=== PATIENT | female | born 2000 | race Caucasian/White ===

== ENCOUNTER 2022-04-26 09:45 | Emergency (ER) | payer MEDICAID, SELFPAY ==
[2022-04-26 09:53] VITALS: BP 130/79; PULSE 116; RESP 18; TEMP 36.6; O2SAT 100
--- NOTE | 2022-04-26 10:06 | ED.GENADULT ---
HPI - General Adult General Chief complaint: Dental/Oral Stated complaint: Toothache Time Seen by Provider: 04/26/22 09:49 Source: patient Mode of arrival: ambulatory Limitations: no limitations History of Present Illness HPI narrative: Patient presents for evaluation of bilateral upper and lower dental pain for the past 3-4 days. She states pain is throbbing, 10/10 in severity. No fever, chills, nausea, vomiting, trismus, problems handling secretions. She tried taking ibuprofen for her symptoms with mild improvement in her pain thereafter. She does not smoke. LMP now. Related Data Allergies Allergy/AdvReac Type Severity Reaction Status Date / Time Penicillins Allergy Unknown Unknown Verified 04/26/22 09:57 Review of Systems Review of Systems: CONSTITUTIONAL: Denies fever, chills, or sweats. EYES: Denies visual changes, redness, or discharge. ENT: Reports bilateral upper and lower dental pain. Denies rhinorrhea, congestion, sore throat, or otalgia. CARDIOVASCULAR: Denies chest pain, palpitations, or edema. RESPIRATORY: Denies cough or dyspnea. GASTROINTESTINAL: Denies abdominal pain, nausea, vomiting, or diarrhea. GENITOURINARY: Denies dysuria or hematuria. SKIN: Denies rash or itching. MUSCULOSKELETAL: Denies back pain, joint pain, or myalgia. NEUROLOGIC: Denies headache, numbness, dizziness, or weakness. PSYCHIATRIC: Denies anxiety or depression. PMFSH Past Medical History Medical History No pertinent past medical history Surgical History Surgical History No pertinent past surgical history Family History Family History Mother Family history non-contributory Social History Social History (Updated 04/26/22 @ 10:10 by Nicolás Grove, SENIOR ENGINEERING TEAM LEADER, ) Smoking status: Never smoker Substance use: never Gender identity (if verbalized by the patient): Female Sexual Orientation (if Verbalized by the Patient): Straight or Heterosexual Spiritual care concerns: No Exam Narrative: GENERAL: Well-appearing, well-nourished, and in no acute distress. HEAD: Normocephalic, atraumatic. EYES: PERRLA and EOMI. ENT: Nares clear, no rhinorrhea or epistaxis. Mucous membranes moist. Yoder teeth are partially impacted. There is a fracture to posterior aspect of tooth #1. There is swelling in gumline surrounding all wisdom teeth. There is no visible abscess. Oropharynx without tonsillar hypertrophy exudate or other lesions. Bilateral TMs pearly hernandez nonbulging NECK: Supple. No adenopathy or masses. No carotid bruits or JVD CHEST: Clear to auscultation. No respiratory distress. No wheezes rales or rhonchi HEART: Regular rate and rhythm. No murmur heard. Normal peripheral pulses. ABDOMEN: Soft, nontender, nondistended, normal active bowel sounds. EXTREMITIES: Normal range of motion. No edema. SKIN: Warm, dry, no rash. NEURO: No focal deficits. Alert and oriented x3. PSYCH: Normal mood and affect. Course Course Emergency Course: This is a 21 yr old female who presented for evaluation of dental pain. She has impacted wisdom teeth and evidence of fracture of tooth #1. Her chart states she has an allergy to PCN but she states that she is able to tolerate amoxicillin. Will dc with amoxicillin and tramadol. Follow up with dentist. Go to ER for worsening symptoms. Pt in agreement with plan of care. Level of Care: Express Care Visit Vital Signs Vital signs: Vital Signs Temperature 36.6 C 04/26/22 09:53 Pulse Rate 116 H 04/26/22 09:53 Respiratory Rate 18 04/26/22 09:53 Blood Pressure 130/79 04/26/22 09:53 Pulse Oximetry 100 04/26/22 09:53 Oxygen Delivery Room Air 04/26/22 09:53 Temperature 36.6 C 04/26/22 09:53 Pulse Rate 116 H 04/26/22 09:53 Respiratory Rate 18 04/26/22 09:53 Blood Pressure 130/79 02/04
== END 2022-04-26 10:07 | disposition home or self-care (01) ==
PROVIDERS: Emergency Provider Nurse Practitioner; PCP Emergency Medicine
DX: S02.5XXA Fracture of tooth (traumatic), initial encounter for closed fracture (principal); X58.XXXA Exposure to other specified factors, initial encounter
CPT/HCPCS: 99213; G0463